=== PATIENT | male | born 1955 | race African-American/Black ===

== ENCOUNTER 2021-01-04 11:31 | Inpatient (IN) | payer OTHER, MEDICAID ==
[~2021-01-04] VITALS: Ht 175.3 cm; Wt 78.5 kg
[2021-01-04] MEDS ORDERED: LORATADINE 10MG TABLET PO SCH (13:00)
[2021-01-04 13:30] LABS: BASOPHILS % 0.4 % (0.0-2.0); EOSINOPHILS % 0.6 % (0.0-5.0); HEMOGLOBIN. 15.4 g/dL (14.0-18.0); LYMPHOCYTES % 11.8 % (20.0-50.0); MEAN CORPUSCULAR HEMOGLOBIN 29.3 pg (28.0-32.0); MEAN CORPUSCULAR VOLUME 89.4 fL (80.0-94.0); MEAN PLATELET VOLUME 7.8 fl (7.4-10.4); MONOCYTES % 8.6 % (2.0-8.0); NEUTROPHILS % 78.6 % (40.0-76.0); PLATELET 254 x1000/uL (130-400); RED BLOOD CELL COUNT 5.26 mill/uL (4.7-6.1); RED CELL DISTRIBUTION WIDTH 15.5 % (11.6-14.6)
[2021-01-04 13:37] LABS: CHLORIDE 111 mEq/L (98-107)
[2021-01-04] MEDS ORDERED: ASPIRIN 325MG TABLET PO ONE (14:15)
[2021-01-04] MEDS ORDERED: FUROSEMIDE 20MG/2ML VIAL IVP ONE (20:15)
[2021-01-04 23:30] VITALS: BP 136/101
[2021-01-05] VITALS (10 sets, daily range): BP systolic 112–168; BP diastolic 65–101
[2021-01-05] MEDS ORDERED: ACETAMINOPHEN 650MG/20.3ML UDC PO PRN (01:30)
[2021-01-05] MEDS: TEMAZEPAM 15MG CAPSULE PO PRN ×2 (01:50→20:14)
[2021-01-05 06:27] LABS: CHLORIDE 110 mEq/L (98-107)
[2021-01-05 06:30] LABS: BASOPHILS % 0.7 % (0.0-2.0); EOSINOPHILS % 2.4 % (0.0-5.0); HEMATOCRIT. 45.9 % (42.0-52.0); HEMOGLOBIN. 15.3 g/dL (14.0-18.0); LYMPHOCYTES % 21.7 % (20.0-50.0); MEAN CORPUSCULAR HEMOGLOBIN 29.7 pg (28.0-32.0); MEAN CORPUSCULAR VOLUME 89.1 fL (80.0-94.0); MEAN PLATELET VOLUME 8.1 fl (7.4-10.4); MONOCYTES % 11.6 % (2.0-8.0); NEUTROPHILS % 63.6 % (40.0-76.0); PLATELET 234 x1000/uL (130-400); RED BLOOD CELL COUNT 5.15 mill/uL (4.7-6.1); RED CELL DISTRIBUTION WIDTH 15.6 % (11.6-14.6)
[2021-01-05 06:37] LABS: LDL CHOLESTEROL 114 mg/dL (5-100)
[2021-01-05 06:40] LABS: CREATINE KINASE 296 IU/L (39-308); HDL CHOLESTEROL 41 mg/dL (40-59)
[2021-01-05 06:47] LABS: CREATINE KINASE MB FRACTION 6.7 ng/mL (0.5-3.6)
[2021-01-05] MEDS: ASPIRIN 81MG TABLET PO SCH (08:09)
[2021-01-05] MEDS: FUROSEMIDE 40MG/4ML VIAL IVP SCH (08:09)
[2021-01-05] MEDS: PANTOPRAZOLE SODIUM 40 MG/VIAL IV SCH (08:09)
[2021-01-05] MEDS: LOSARTAN POTASSIUM 50 MG TABLET PO SCH (08:09)
[2021-01-05] MEDS: METOPROLOL TARTRATE 50MG TABLET PO SCH ×2 (08:09→20:14)
[2021-01-05] MEDS ORDERED: HEPARIN SODIUM 1,000 UNIT/1ML VIAL IV ONE (08:16)
[2021-01-05] MEDS ORDERED: POTASSIUM CHLORIDE 20MEQ TABLET SR PO ONE (09:15)
[2021-01-05] MEDS ORDERED: POTASSIUM CHLORIDE 20MEQ TABLET SR PO NR (09:15)
[2021-01-05] MEDS ORDERED: CLONIDINE 0.1MG TABLET PO PRN (09:45)
[2021-01-05] MEDS: AMLODIPINE 5MG TABLET PO SCH ×2 (09:58→20:15)
[2021-01-05] MEDS: ENOXAPARIN 40MG/0.4ML SYR SUBCUT SCH (09:59)
[2021-01-05] MEDS ORDERED: IPRATROPIUM/ALBUTEROL 0.5-3(2.5)MG/3ML NEB HHN ONE (10:30)
[2021-01-05] MEDS ORDERED: METHYLPREDNISOLONE SOD SUCC 40 MG/ML VIAL IV ONE (10:30)
[2021-01-05] MEDS ORDERED: [UNRECOGNIZED DRUG - CODE] PO (11:01)
[2021-01-05] MEDS ORDERED: ASPI-1497 PO (11:01)
[2021-01-05] MEDS ORDERED: ATOR10TA69 PO (11:01)
[2021-01-05] MEDS ORDERED: AMLO5TAB88 PO (11:01)
[2021-01-05] MEDS ORDERED: LOSA100T32 PO (11:01)
[2021-01-05] MEDS ORDERED: ASPI-1497 MT (11:11)
[2021-01-05] MEDS ORDERED: LOSA25TA3 MT (11:11)
[2021-01-05] MEDS ORDERED: FURO-151 MT (11:11)
[2021-01-05] MEDS ORDERED: ALBU90AE INH (11:11)
[2021-01-05] MEDS ORDERED: ATOR10TA MT (11:11)
[2021-01-05] MEDS ORDERED: AMLO5TAB4 MT (11:11)
[2021-01-05] MEDS ORDERED: COR3 MT (11:11)
[2021-01-05 11:19] LABS: T4 FREE 1.13 ng/dL (0.76-1.46)
[2021-01-05] MEDS ORDERED: SODIUM CHLORIDE 0.45% 500 ML IV ONE (13:00)
[2021-01-05] MEDS: IPRATROPIUM/ALBUTEROL 0.5-3(2.5)MG/3ML NEB HHN SCH ×2 (13:05→21:53)
[2021-01-05] MEDS ORDERED: DIPHENHYDRAMINE 50MG/ML VIAL IV PRN (13:45)
[2021-01-05] MEDS ORDERED: MORPHINE SULFATE 2 MG/ML CPJ (NOT FOR IM USE) IV PRN ×2 (13:45→15:45)
[2021-01-05] MEDS ORDERED: ACETAMINOPHEN 650MG SUPP PR PRN (13:45)
[2021-01-05] MEDS ORDERED: ONDANSETRON HCL 4MG/2ML INJ IV PRN ×2 (13:45→15:45)
[2021-01-05] MEDS ORDERED: LORAZEPAM 2MG/ML CPJ IV PRN (13:45)
[2021-01-05] MEDS ORDERED: LIDOCAINE HCL/PF 1% 2ML VIAL ONE (13:46)
[2021-01-05] MEDS ORDERED: ASPIRIN/SOD BICARB/CITRIC ACID 324MG TAB EFF ONE (15:01)
[2021-01-05] MEDS ORDERED: LIDOCAINE HCL 1% 20ML VIAL (Pyxis) INJ ONE (15:19)
[2021-01-05] MEDS ORDERED: FENTANYL CITRATE/PF 50MCG/ML 2ML VIAL ONE (15:19)
[2021-01-05] MEDS ORDERED: MIDAZOLAM HCL 2 MG/2 ML VIAL ONE (15:19)
[2021-01-05] MEDS ORDERED: IODIXANOL 320MG/ML 200ML BOTTLE ONE (15:19)
[2021-01-05 15:36] LABS: CLARITY URINE CLEAR (CLEAR); COLOR URINE YELLOW (YELLOW); KETONES URINE NEGATIVE (NEGATIVE); LEUKOCYTE ESTERASE URINE TRACE (NEGATIVE); NITRITE URINE NEGATIVE (NEGATIVE); OCCULT BLOOD URINE NEGATIVE (NEGATIVE); PROTEIN URINE TRACE (NEGATIVE); UROBILINOGEN URINE 0.2 E.U./dL (0.2-1.0)
[2021-01-05] MEDS ORDERED: ACETAMINOPHEN 325MG TABLET PO PRN (15:45)
[2021-01-05] MEDS ORDERED: ATROPINE SULFATE 1MG/10ML SYR IV PRN (15:45)
[2021-01-05 15:52] LABS: BG BASE EXCESS -2.7 mmol/L (-2.0-2.0); BG CARBOXYHEMOGLOBIN 1.2 % (0.5-1.5); BG DEOXYHEMOGLOBIN 5.8 % (0.0-5.0); BG FRACTION INSPIRED OXYGEN 32; BG HCO3 ACT 21.2 mmol/L (22.0-26.0); BG METHEMOGLOBIN 0.5 % (0.0-1.5); BG OXYGEN SATURATION 94.1 % (92.0-98.5); BG OXYHEMOGLOBIN 92.5 % (94.0-97.0); BG PCO2 34.4 mmHg (35.0-45.0); BG PH 7.407 (7.350-7.450); BG PO2 68.9 mmHg (75.0-100.0); BG SAMPLE SITE ALINE; BG TOTAL HEMOGLOBIN 15.9 g/dL (12.0-18.0); BG VENT MODE NASAL CANNULA
[2021-01-05] MEDS: LEVOFLOXACIN 500MG PREMIX 100 ML IV SCH (17:22)
[2021-01-05] MEDS: SODIUM CHLORIDE 0.45% 300 ML IV NR ×2 (17:24→20:15)
[2021-01-05 20:39] LABS: D-DIMER 0.67 mg/L FEU (<0.50); INR 1.1; PROTHROMBIN TIME 11.6 sec (9.6-11.0)
[2021-01-05] MEDS ORDERED: LACTULOSE 20G/30ML UDC PO PRN (21:00)
[2021-01-06] MEDS: IPRATROPIUM/ALBUTEROL 0.5-3(2.5)MG/3ML NEB HHN SCH ×3 (00:58→14:48)
[2021-01-06 02:00] VITALS: BP 108/75
[2021-01-06 04:00] VITALS: BP 106/62
[2021-01-06 06:25] LABS: BASOPHILS % 0.5 % (0.0-2.0); EOSINOPHILS % 0.5 % (0.0-5.0); HEMATOCRIT. 46.3 % (42.0-52.0); HEMOGLOBIN. 15.1 g/dL (14.0-18.0); LYMPHOCYTES % 12.1 % (20.0-50.0); MEAN CORPUSCULAR HEMOGLOBIN 29.3 pg (28.0-32.0); MEAN CORPUSCULAR VOLUME 89.6 fL (80.0-94.0); MEAN PLATELET VOLUME 8.1 fl (7.4-10.4); MONOCYTES % 12.5 % (2.0-8.0); NEUTROPHILS % 74.4 % (40.0-76.0); PLATELET 277 x1000/uL (130-400); RED BLOOD CELL COUNT 5.16 mill/uL (4.7-6.1); RED CELL DISTRIBUTION WIDTH 15.8 % (11.6-14.6)
[2021-01-06 06:45] LABS: CHLORIDE 108 mEq/L (98-107)
[2021-01-06 08:00] VITALS: BP 125/82
[2021-01-06] MEDS ORDERED: PREDNISONE 20MG TABLET PO SCH (09:00)
[2021-01-06] MEDS: LOSARTAN POTASSIUM 50 MG TABLET PO SCH (09:19)
[2021-01-06] MEDS: FUROSEMIDE 40MG/4ML VIAL IVP SCH (09:20)
[2021-01-06] MEDS: AMLODIPINE 5MG TABLET PO SCH (09:20)
[2021-01-06] MEDS: METOPROLOL TARTRATE 50MG TABLET PO SCH (09:20)
[2021-01-06] MEDS: PANTOPRAZOLE SODIUM 40 MG/VIAL IV SCH (09:20)
[2021-01-06] MEDS: ENOXAPARIN 40MG/0.4ML SYR SUBCUT SCH (09:21)
[2021-01-06] MEDS: ASPIRIN 81MG TABLET PO SCH (09:21)
[2021-01-06 10:00] VITALS: BP 129/73
[2021-01-06 12:00] VITALS: BP 97/73
[2021-01-06] MEDS: LEVOFLOXACIN 500MG PREMIX 100 ML IV SCH (14:00)
[2021-01-06 15:22] VITALS: BP 128/68
[2021-01-07] MEDS ORDERED: FAMOTIDINE 20MG TABLET PO SCH (09:00)
== END 2021-01-06 15:07 | disposition home or self-care (01) | DRG 280 ==
LOC: ER 11:31 → EDBD 11:31 → 3WST 17:01 → EDBEDREQSVC 22:18 → ENRESERV 22:35
PROVIDERS: ADMIT Internal Medicine; ATTEND Internal Medicine
PROC: 4A023N7 Measurement of Cardiac Sampling and Pressure, Left Heart, Percutaneous Approach (ICD-10-PCS; principal; 2021-01-05)
PROC: B2111ZZ Fluoroscopy of Multiple Coronary Arteries using Low Osmolar Contrast (ICD-10-PCS; 2021-01-05)
DX: I21.4 Non-ST elevation (NSTEMI) myocardial infarction (principal); I50.23 Acute on chronic systolic (congestive) heart failure; J96.00 Acute respiratory failure, unspecified whether with hypoxia or hypercapnia; I13.0 Hypertensive heart and chronic kidney disease with heart failure and stage 1 through stage 4 chronic kidney disease, or unspecified chronic kidney disease; Q23.1 Congenital insufficiency of aortic valve; I42.9 Cardiomyopathy, unspecified; I27.20 Pulmonary hypertension, unspecified; D72.829 Elevated white blood cell count, unspecified; N18.9 Chronic kidney disease, unspecified; F17.210 Nicotine dependence, cigarettes, uncomplicated; E78.5 Hyperlipidemia, unspecified; F43.10 Post-traumatic stress disorder, unspecified; E87.6 Hypokalemia; I34.0 Nonrheumatic mitral (valve) insufficiency; Z20.822 Contact with and (suspected) exposure to COVID-19; I25.10 Atherosclerotic heart disease of native coronary artery without angina pectoris; J06.9 Acute upper respiratory infection, unspecified; J44.9 Chronic obstructive pulmonary disease, unspecified
CPT/HCPCS: 36415; 36600; 71045; 80048; 80053; 80061; 81003; 82375; 82550; 82553; 82805; 83735; 83880; 84439; 84443; 84484; 85025; 85379; 87426; 93005; 93306; 93458; 93970; 94640; 97161; 99285; C1769; C1887; C1893; C9113; J1644; J1650; J1940; J1956; J2250; J2920; J3010; J3490; J7512; Q9967

== ENCOUNTER 2024-04-05 16:11 | Inpatient (IN) | payer MEDICARE, MEDICAID ==
[~2024-04-05] VITALS: Ht 172.7 cm; Wt 79.5 kg
[~2024-04-05 16:11] MED LIST: ALBU90AE INH; AMLO5TAB4 MT; AMLO5TAB88 PO; ASPI-1497 MT; ASPI-1497 PO; ATOR10TA MT; ATOR10TA69 PO; COR3 MT; FURO-151 MT; LOSA-412 MT
[2024-04-05 18:16] LABS: EOSINOPHILS % 1.9 % (0.0-5.0); HEMOGLOBIN. 13.6 g/dL (14.0-18.0); LYMPHOCYTES % 14.9 % (20.0-50.0); MEAN CORPUSCULAR HEMOGLOBIN 29.8 pg (28.0-32.0); MEAN CORPUSCULAR HGB CONC 32.3 g/dL (31.0-37.0); MEAN CORPUSCULAR VOLUME 92.3 fL (80.0-94.0); MEAN PLATELET VOLUME 7.7 fl (7.4-10.4); MONOCYTES % 11.7 % (2.0-8.0); NEUTROPHILS % 70.5 % (40.0-76.0); PLATELET 311 x1000/uL (130-400); RED BLOOD CELL COUNT 4.55 mill/uL (4.7-6.1); RED CELL DISTRIBUTION WIDTH 15.7 % (11.6-14.6); WHITE BLOOD COUNT 10.7 x1000/uL (4.5-11.0)
[2024-04-05 18:22] LABS: CHLORIDE 108 mEq/L (98-107); SODIUM 137 mEq/L (136-145)
[2024-04-05 18:23] LABS: CARBON DIOXIDE 24 mEq/L (21-32)
[2024-04-05 18:24] LABS: CALCIUM 9.4 mg/dL (8.7-10.4)
[2024-04-05 18:28] LABS: CREATININE 1.5 mg/dL (0.6-1.3); GLUCOSE 124 mg/dL (70-105)
[2024-04-05 18:29] LABS: UREA NITROGEN BLOOD 19 mg/dL (9-23)
[2024-04-05 19:03] LABS: TROPONIN I HIGH SENSITIVITY 573 ng/L (3.0-53)
[2024-04-05] MEDS ORDERED: HEPARIN 5000 UNITS/ML VIAL IV ONE (19:15)
[2024-04-05] MEDS ORDERED: HEPARIN 25,000 UNITS PREMIX 250 ML IV SCH ×2 (19:15→19:30)
[2024-04-05] MEDS ORDERED: HEPARIN BOLUS PRN aPTT <30 IV (19:30)
[2024-04-05] MEDS ORDERED: HEPARIN 60 UNITS/KG BOLUS IV SCH (19:30)
[2024-04-05] MEDS ORDERED: HEPARIN BOLUS PRN aPTT 30-44 IV (19:30)
[2024-04-05] MEDS ORDERED: ACETAMINOPHEN 325MG TABLET PO PRN (20:00)
[2024-04-05] MEDS: NITROGLYCERIN 0.4MG TABLET SL SL PRN ×2 (20:00)
[2024-04-05] MEDS ORDERED: DOCUSATE SODIUM 100MG CAPSULE PO PRN (20:00)
[2024-04-05] MEDS ORDERED: IPRATROPIUM/ALBUTEROL 0.5-3(2.5)MG/3ML NEB NEB PRN (20:00)
[2024-04-05] MEDS ORDERED: MAGNESIUM/ALUMINUM HYDROXIDE/SIMETHICONE 30ML UDC PO PRN (20:00)
[2024-04-05] MEDS ORDERED: GUAIFENESIN 200MG/10ML SUGAR FREE UDC PO PRN (20:00)
[2024-04-05] MEDS ORDERED: ONDANSETRON HCL 4MG/2ML INJ IV PRN (20:00)
[2024-04-05] MEDS: ENOXAPARIN 80MG/0.8ML SYR SUBCUT NR (20:22)
[2024-04-05] MEDS: POTASSIUM CHLORIDE 20MEQ TABLET SR PO NR (20:22)
[2024-04-05 20:23] LABS: TROPONIN I HIGH SENSITIVITY 571 ng/L (3.0-53)
[2024-04-05] MEDS: FAMOTIDINE 20MG TABLET PO SCH (20:23)
[2024-04-05 21:03] LABS: IRON 65 ug/dL (65-175)
[2024-04-05 21:04] LABS: LDL CHOLESTEROL 88 mg/dL (5-100); TRIGLYCERIDE 50 mg/dL (0-150)
[2024-04-05] MEDS ORDERED: DIPH-1207 PO (21:04)
[2024-04-05] MEDS ORDERED: OXYC-582 PO (21:04)
[2024-04-05] MEDS ORDERED: CHLO25TA2 PO (21:04)
[2024-04-05] MEDS ORDERED: DAPA10TA PO (21:04)
[2024-04-05 21:05] LABS: ALANINE AMINOTRANSFERASE 125 IU/L (10-49); ALBUMIN 3.7 g/dL (3.2-4.8); ASPARTATE AMINOTRANSFERASE 82 IU/L (<34); INR 1.1; PARTIAL THROMBOPLASTIN TIME 26.7 sec (23.4-31.0); PROTHROMBIN TIME 12.5 sec (9.6-11.0)
[2024-04-05 21:06] LABS: BILIRUBIN DIRECT 0.4 mg/dL (<=3.0); CHOLESTEROL 119 mg/dL (<200); HDL CHOLESTEROL 23 mg/dL (>55); PROTEIN TOTAL 6.8 g/dL (6.0-8.3); TOTAL IRON BINDING CAPACITY 390 ug/dl (250-425)
[2024-04-05 21:08] LABS: FOLIC ACID (FOLATE) SERUM > 20.00 ng/mL (>5.38); T4 FREE 1.08 ng/dL (0.89-1.76); THYROID STIMULATING HORMONE 0.71 uIU/mL (0.55-4.78)
[2024-04-05] MEDS ORDERED: LOSA100T33 PO (21:09)
[2024-04-05 21:14] LABS: VITAMIN B12 SERUM > 2000 pg/mL (211-911)
[2024-04-05 22:30] VITALS: BP 137/72; PULSE 99; RESP 20; TEMP 36.696
[2024-04-06] VITALS: BP 118/88; PULSE 80; RESP 20; TEMP 36.89184; O2SAT 96
[2024-04-06] MEDS: ZOLPIDEM TARTRATE 5MG TABLET PO PRN (01:22)
[2024-04-06 04:00] VITALS: BP 117/94; PULSE 94; RESP 20; TEMP 36.55848; O2SAT 98
[2024-04-06 06:15] LABS: BASOPHILS % 0.9 % (0.0-2.0); CHLORIDE 110 mEq/L (98-107); EOSINOPHILS % 1.7 % (0.0-5.0); HEMOGLOBIN. 12.3 g/dL (14.0-18.0); LYMPHOCYTES % 18.1 % (20.0-50.0); MEAN CORPUSCULAR HEMOGLOBIN 29.8 pg (28.0-32.0); MEAN CORPUSCULAR HGB CONC 32.3 g/dL (31.0-37.0); MEAN CORPUSCULAR VOLUME 92.2 fL (80.0-94.0); MONOCYTES % 12.1 % (2.0-8.0); NEUTROPHILS % 67.2 % (40.0-76.0); PLATELET 275 x1000/uL (130-400); POTASSIUM 3.6 mEq/L (3.5-5.1); RED BLOOD CELL COUNT 4.12 mill/uL (4.7-6.1); RED CELL DISTRIBUTION WIDTH 15.7 % (11.6-14.6); SODIUM 139 mEq/L (136-145); WHITE BLOOD COUNT 9.2 x1000/uL (4.5-11.0)
[2024-04-06 06:18] LABS: CALCIUM 9.2 mg/dL (8.7-10.4); CARBON DIOXIDE 23 mEq/L (21-32)
[2024-04-06 06:23] LABS: CREATININE 1.6 mg/dL (0.6-1.3); GLUCOSE 151 mg/dL (70-105); UREA NITROGEN BLOOD 25 mg/dL (9-23)
[2024-04-06 06:24] LABS: ALANINE AMINOTRANSFERASE 103 IU/L (10-49)
[2024-04-06 06:25] LABS: ALBUMIN 3.2 g/dL (3.2-4.8); ASPARTATE AMINOTRANSFERASE 54 IU/L (<34); BILIRUBIN TOTAL 0.7 mg/dL (0.1-1.0); CREATINE KINASE MB FRACTION 8.5 ng/mL (0.5-3.6); PHOSPHORUS 3.9 mg/dL (2.5-4.9)
[2024-04-06 08:04] VITALS: BP 182/99; PULSE 92; RESP 20; TEMP 36.28068; O2SAT 99
[2024-04-06] MEDS: ENOXAPARIN 80MG/0.8ML SYR SUBCUT SCH (08:51)
[2024-04-06] MEDS: ASPIRIN 325MG EC TABLET PO SCH (08:52)
[2024-04-06] MEDS: CLONIDINE 0.1MG TABLET PO PRN (08:52)
[2024-04-06] MEDS: FUROSEMIDE 40MG/4ML VIAL IVP SCH ×2 (10:30→18:08)
[2024-04-06 12:18] VITALS: BP 98/58; PULSE 43; RESP 18; TEMP 36.44736; O2SAT 96
[2024-04-06 15:58] VITALS: BP 123/90; PULSE 90; RESP 18; TEMP 36.44736; O2SAT 98
[2024-04-06 20:00] VITALS: BP 95/60; PULSE 103; RESP 17; TEMP 36.28068
[2024-04-07] VITALS: BP 101/69; PULSE 52; RESP 17; TEMP 36.22512
[2024-04-07 08:00] VITALS: BP 109/75; PULSE 96; RESP 19; TEMP 35.8362; O2SAT 95
[2024-04-07] MEDS: ACETAMINOPHEN 325MG TABLET PO PRN (08:48)
[2024-04-07] MEDS: ASPIRIN 81MG EC TABLET PO SCH (08:49)
[2024-04-07] MEDS: SPIRONOLACTONE 12.5MG TABLET PO SCH (08:51)
[2024-04-07 12:00] VITALS: BP 112/70; PULSE 91; RESP 18; TEMP 36.114; O2SAT 96
[2024-04-07 16:00] VITALS: BP 139/84; PULSE 55; RESP 18; TEMP 36.114; O2SAT 97
[2024-04-07 16:41] LABS: POTASSIUM 3.2 mEq/L (3.5-5.1)
[2024-04-07 16:42] LABS: CALCIUM 9.4 mg/dL (8.7-10.4)
[2024-04-07 16:47] LABS: CREATININE 1.7 mg/dL (0.6-1.3)
[2024-04-07 20:00] VITALS: BP 127/91; PULSE 55; RESP 19; TEMP 36.44736; O2SAT 98
[2024-04-08] VITALS: BP 110/68; PULSE 73; RESP 20; TEMP 36.33624; O2SAT 98
[2024-04-08 03:19] LABS: *AMPHETAMINES SCREEN URINE NEGATIVE (NEGATIVE); *BARBITURATES SCREEN URINE NEGATIVE (NEGATIVE); *BENZODIAZEPINES SCREEN URINE NEGATIVE (NEGATIVE); *COCAINE SCREEN URINE NEGATIVE (NEGATIVE); CANNABINOID URINE SCREEN NEGATIVE (NEGATIVE); ECSTASY MDMA SCREEN URINE NEGATIVE (NEGATIVE); METHADONE URINE SCREEN NEGATIVE (NEGATIVE); OPIATES URINE SCREEN NEGATIVE (NEGATIVE); PHENCYCLIDINE URINE SCREEN NEGATIVE (NEGATIVE)
[2024-04-08 04:00] VITALS: BP 120/74; PULSE 94; RESP 19; TEMP 36.55848; O2SAT 96
[2024-04-08 06:31] LABS: EOSINOPHILS % 1.3 % (0.0-5.0); HEMATOCRIT. 43.9 % (42.0-52.0); LYMPHOCYTES % 16.2 % (20.0-50.0); MEAN CORPUSCULAR HEMOGLOBIN 29.4 pg (28.0-32.0); MEAN CORPUSCULAR HGB CONC 32.6 g/dL (31.0-37.0); MEAN CORPUSCULAR VOLUME 90.3 fL (80.0-94.0); MEAN PLATELET VOLUME 8.5 fl (7.4-10.4); MONOCYTES % 10.4 % (2.0-8.0); NEUTROPHILS % 71.1 % (40.0-76.0); PLATELET 314 x1000/uL (130-400); RED BLOOD CELL COUNT 4.85 mill/uL (4.7-6.1); WHITE BLOOD COUNT 9.6 x1000/uL (4.5-11.0)
[2024-04-08 06:43] LABS: HEMOGLOBIN. 14.3 g/dL (14.0-18.0)
[2024-04-08 06:47] LABS: CHLORIDE 103 mEq/L (98-107); POTASSIUM 3.3 mEq/L (3.5-5.1); SODIUM 140 mEq/L (136-145)
[2024-04-08 06:48] LABS: CARBON DIOXIDE 26 mEq/L (21-32)
[2024-04-08 06:49] LABS: CALCIUM 10.1 mg/dL (8.7-10.4)
[2024-04-08 06:53] LABS: CREATININE 1.4 mg/dL (0.6-1.3)
[2024-04-08 06:54] LABS: GLUCOSE 114 mg/dL (70-105); UREA NITROGEN BLOOD 25 mg/dL (9-23)
[2024-04-08 06:55] LABS: ALANINE AMINOTRANSFERASE 90 IU/L (10-49); ASPARTATE AMINOTRANSFERASE 49 IU/L (<34)
[2024-04-08 06:56] LABS: BILIRUBIN TOTAL 1.3 mg/dL (0.1-1.0); PHOSPHORUS 4.4 mg/dL (2.5-4.9); PROTEIN TOTAL 7.3 g/dL (6.0-8.3)
[2024-04-08 08:00] VITALS: BP 108/77; PULSE 103; RESP 20; TEMP 36.05844; O2SAT 99
[2024-04-08] MEDS ORDERED: SPIR25TA MT (08:32)
[2024-04-08] MEDS ORDERED: FURO-151 MT (08:32)
[2024-04-08] MEDS: POTASSIUM CHLORIDE 20MEQ TABLET SR PO NR (08:46)
[2024-04-08 09:33] VITALS: BP 108/77; PULSE 103; TEMP 96.9; O2SAT 99
== END 2024-04-08 09:50 | disposition home or self-care (01) | DRG 280 ==
LOC: ER 16:11 → 7WST 19:35 → EDBEDREQ 19:37
PROVIDERS: ADMIT Internal Medicine; ATTEND Internal Medicine
DX: I21.4 Non-ST elevation (NSTEMI) myocardial infarction (principal); I50.23 Acute on chronic systolic (congestive) heart failure; J96.01 Acute respiratory failure with hypoxia; N17.9 Acute kidney failure, unspecified; I11.0 Hypertensive heart disease with heart failure; E87.6 Hypokalemia; E78.00 Pure hypercholesterolemia, unspecified; F17.210 Nicotine dependence, cigarettes, uncomplicated; H54.7 Unspecified visual loss; J44.89 Other specified chronic obstructive pulmonary disease; D64.9 Anemia, unspecified; I16.0 Hypertensive urgency
CPT/HCPCS: 36415; 71045; 76770; 80048; 80053; 80061; 80076; 80305; 82550; 82553; 82607; 82746; 83036; 83540; 83550; 83605; 83735; 83880; 84100; 84145; 84439; 84443; 84484; 85025; 93306; 93970; 99285; J1644; J1650; J1940

== ENCOUNTER 2024-04-17 18:48 | Inpatient (IN) | payer MEDICARE, MEDICAID ==
[~2024-04-17] VITALS: Ht 172.7 cm; Wt 75.7 kg
[~2024-04-17 18:48] MED LIST changes: -ALBU90AE INH; -AMLO5TAB4 MT; -ASPI-1497 MT; -ATOR10TA MT; -ATOR10TA69 PO; +DAPA10TA PO; -LOSA-412 MT; +LOSA100T33 PO; +SPIR25TA MT
[2024-04-17] MEDS: FUROSEMIDE 40MG TABLET PO ONE (22:16)
[2024-04-17] MEDS ORDERED: FURO-151 MT (22:52)
[2024-04-17] MEDS ORDERED: SPIR25TA MT (22:52)
[2024-04-17 22:59] LABS: BASOPHILS % 1.4 % (0.0-2.0); EOSINOPHILS % 1.7 % (0.0-5.0); HEMOGLOBIN. 14.5 g/dL (14.0-18.0); LYMPHOCYTES % 18.8 % (20.0-50.0); MEAN CORPUSCULAR HEMOGLOBIN 29.6 pg (28.0-32.0); MEAN CORPUSCULAR HGB CONC 32.2 g/dL (31.0-37.0); MEAN CORPUSCULAR VOLUME 91.9 fL (80.0-94.0); MEAN PLATELET VOLUME 7.9 fl (7.4-10.4); MONOCYTES % 10.3 % (2.0-8.0); NEUTROPHILS % 67.8 % (40.0-76.0); PLATELET 305 x1000/uL (130-400); RED BLOOD CELL COUNT 4.89 mill/uL (4.7-6.1); RED CELL DISTRIBUTION WIDTH 15.9 % (11.6-14.6); WHITE BLOOD COUNT 8.4 x1000/uL (4.5-11.0)
[2024-04-17 23:02] LABS: CHLORIDE 104 mEq/L (98-107); POTASSIUM 3.9 mEq/L (3.5-5.1); SODIUM 137 mEq/L (136-145)
[2024-04-17 23:03] LABS: CALCIUM 9.3 mg/dL (8.7-10.4); CARBON DIOXIDE 25 mEq/L (21-32)
[2024-04-17 23:08] LABS: CREATININE 1.6 mg/dL (0.6-1.3); GLUCOSE 162 mg/dL (70-105); UREA NITROGEN BLOOD 23 mg/dL (9-23)
[2024-04-17 23:12] LABS: TROPONIN I HIGH SENSITIVITY 599 ng/L (3.0-53)
[2024-04-18 08:52] VITALS: BP 98/58; PULSE 56; RESP 20; TEMP 36.50292; O2SAT 99
[2024-04-18] MEDS ORDERED: ONDANSETRON HCL 4MG/2ML INJ IV PRN (12:00)
[2024-04-18] MEDS ORDERED: ACETAMINOPHEN 325MG TABLET PO PRN ×2 (12:00)
[2024-04-18] MEDS ORDERED: DOCUSATE SODIUM 100MG CAPSULE PO PRN (12:00)
[2024-04-18] MEDS ORDERED: CLONIDINE 0.1MG TABLET PO PRN (12:00)
[2024-04-18] MEDS: FUROSEMIDE 40MG/4ML VIAL IVP SCH (13:03)
[2024-04-18 14:39] VITALS: BP 98/58; PULSE 59; RESP 20; TEMP 36.6404
[2024-04-18 16:05] VITALS: BP 100/77; PULSE 94; RESP 20; TEMP 36.50292; O2SAT 100
[2024-04-18] MEDS: ISOSORBIDE DINITRATE 10MG TABLET PO SCH (16:36)
[2024-04-18 17:11] LABS: TROPONIN I HIGH SENSITIVITY 509 ng/L (3.0-53)
[2024-04-18] MEDS: ASPIRIN 81MG TABLET PO SCH (17:54)
[2024-04-18 20:00] VITALS: BP 106/73; PULSE 79; RESP 20; TEMP 36.3918; O2SAT 97
[2024-04-18] MEDS: ATORVASTATIN CALCIUM 40MG TABLET PO SCH (22:27)
[2024-04-18 23:02] LABS: TROPONIN I HIGH SENSITIVITY 522 ng/L (3.0-53)
[2024-04-19] VITALS: BP 110/75; PULSE 82; RESP 18; TEMP 36.72516; O2SAT 98
[2024-04-19 00:28] LABS: *AMPHETAMINES SCREEN URINE NEGATIVE (NEGATIVE); *BARBITURATES SCREEN URINE NEGATIVE (NEGATIVE); *BENZODIAZEPINES SCREEN URINE NEGATIVE (NEGATIVE); *COCAINE SCREEN URINE PRESUMPTIVE POSITIVE (NEGATIVE); CANNABINOID URINE SCREEN NEGATIVE (NEGATIVE); ECSTASY MDMA SCREEN URINE NEGATIVE (NEGATIVE); OPIATES URINE SCREEN NEGATIVE (NEGATIVE); PHENCYCLIDINE URINE SCREEN NEGATIVE (NEGATIVE)
[2024-04-19 00:29] LABS: METHADONE URINE SCREEN NEGATIVE (NEGATIVE)
[2024-04-19 04:00] VITALS: BP 115/70; PULSE 96; RESP 20; TEMP 36.55848; O2SAT 96
[2024-04-19 04:46] VITALS: PULSE 101; RESP 20; O2SAT 99
[2024-04-19] MEDS: IPRATROPIUM/ALBUTEROL 0.5-3(2.5)MG/3ML NEB HHN PRN (04:46)
[2024-04-19 08:00] VITALS: BP 104/81; PULSE 103; RESP 18; TEMP 37.00296; O2SAT 100
[2024-04-19] MEDS ORDERED: DEXTROSE 50% WATER 50ML SYRINGE IV PRN (10:45)
[2024-04-19 12:00] VITALS: BP 132/112; PULSE 96; RESP 20; TEMP 36.33624; O2SAT 97
[2024-04-19] MEDS: BLOOD SUGAR DIAGNOSTIC STRIP TEST SCH (12:40)
[2024-04-19] MEDS: INSULIN LISPRO 100 UNITS/ML SUBCUT SCH (13:10)
[2024-04-19 20:00] VITALS: BP 108/76; PULSE 103; RESP 18; TEMP 36.61404; O2SAT 97
[2024-04-20] VITALS: BP 151/85; PULSE 55; RESP 18; TEMP 36.72516; O2SAT 98
[2024-04-20] MEDS: NITROGLYCERIN 0.4MG TABLET SL SL PRN (03:29)
[2024-04-20 04:00] VITALS: BP 111/90; PULSE 100; RESP 20; TEMP 36.3918; O2SAT 98
[2024-04-20 07:08] LABS: POTASSIUM 3.8 mEq/L (3.5-5.1)
[2024-04-20 07:09] LABS: CALCIUM 9.7 mg/dL (8.7-10.4)
[2024-04-20 07:11] LABS: CREATININE 1.5 mg/dL (0.6-1.3)
[2024-04-20 08:00] VITALS: BP 141/78; PULSE 81; RESP 20; TEMP 36.50292; O2SAT 100
[2024-04-20 09:11] LABS: BASOPHILS % 1.1 % (0.0-2.0); EOSINOPHILS % 2.5 % (0.0-5.0); HEMATOCRIT. 41.4 % (42.0-52.0); HEMOGLOBIN. 13.3 g/dL (14.0-18.0); LYMPHOCYTES % 21.2 % (20.0-50.0); MEAN CORPUSCULAR HEMOGLOBIN 29.1 pg (28.0-32.0); MEAN CORPUSCULAR HGB CONC 32.1 g/dL (31.0-37.0); MEAN CORPUSCULAR VOLUME 90.7 fL (80.0-94.0); MEAN PLATELET VOLUME 8.4 fl (7.4-10.4); MONOCYTES % 10.8 % (2.0-8.0); NEUTROPHILS % 64.4 % (40.0-76.0); PLATELET 316 x1000/uL (130-400); RED BLOOD CELL COUNT 4.56 mill/uL (4.7-6.1); RED CELL DISTRIBUTION WIDTH 15.8 % (11.6-14.6); WHITE BLOOD COUNT 9.3 x1000/uL (4.5-11.0)
[2024-04-20 12:00] VITALS: BP 130/81; PULSE 78; RESP 20; TEMP 36.55848; O2SAT 99
[2024-04-20] MEDS ORDERED: FURO-151 MT (13:23)
[2024-04-20] MEDS ORDERED: ISOS10TA2 PO (13:23)
[2024-04-20] MEDS ORDERED: LIP40 PO (13:23)
[2024-04-20 14:52] VITALS: BP 134/56; PULSE 78; TEMP 97; O2SAT 99
== END 2024-04-20 15:15 | disposition home or self-care (01) | DRG 280 ==
LOC: ER 18:48 → 7WST 04-18 03:58 → EDBEDREQ 04-18 04:28 → EDBEDREQTM 04-18 04:28
PROVIDERS: ADMIT Internal Medicine; ATTEND Internal Medicine
DX: I11.0 Hypertensive heart disease with heart failure (principal); I50.23 Acute on chronic systolic (congestive) heart failure; I21.4 Non-ST elevation (NSTEMI) myocardial infarction; J96.01 Acute respiratory failure with hypoxia; N17.9 Acute kidney failure, unspecified; I16.0 Hypertensive urgency; F14.90 Cocaine use, unspecified, uncomplicated; D72.821 Monocytosis (symptomatic); I27.20 Pulmonary hypertension, unspecified; I36.1 Nonrheumatic tricuspid (valve) insufficiency; F17.210 Nicotine dependence, cigarettes, uncomplicated; Z20.822 Contact with and (suspected) exposure to COVID-19; Z91.148 Patient's other noncompliance with medication regimen for other reason
CPT/HCPCS: 36415; 71045; 80048; 80305; 82962; 83880; 84484; 85025; 87426; 93005; 94640; 99285; J1815; J1940